=== PATIENT | male | born 1985 | race African-American/Black ===

== ENCOUNTER 2016-09-07 07:10 | Day surgery (SDC) | payer OTHER ==
[~2016-09-07] VITALS: Ht 167.6 cm; Wt 95.6 kg
[2016-09-07] VITALS (18 sets, daily range): BP systolic 130–180; BP diastolic 78–100; PULSE 91–116; RESP 12–18; TEMP 97.3–98.9; O2SAT 96–100; Ht 167.6 cm; Wt 95.6 kg
[~2016-09-07 07:10] MED LIST: ALBU8.5H INH; CHOL100055 PO; HYOS0.3739 PO; LIDOCAINE 1% (10mg/ml) 2ml SDV INJ ONE; LISI10TA7 PO; LORA10TA7 PO; LR 1,000 ML IV SCH; MULT-447 PO; PANT40TA27 PO; TEST200V21 IM; VENL75TA4 PO
--- OUTSIDE RECORDS SUMMARY | 2016-09-07 07:14 | XMS REPORT | Referral Summary ---
Author Author [facility] Organization [facility] Address Unknown Phone Unavailable Care Team Providers Care [employer] Consultant Name Role Phone Jh Vega Primary Care Physician [phone] [facility] [id number] Date(s): 07/24/15 - 07/24/15 [facility] [address] [place] [address] [place] Discharge Diagnosis: Diarrhea Discharge Diagnosis: Abdominal pain Discharge Diagnosis: IBS (irritable bowel syndrome) Discharge Disposition: -Home or Self Care Attending Physician: Rylee Whalen Admitting Physician: Rylee Whalen Referring Physician: Osbaldo Vega MD Vital Signs Most recent to 1 oldest [Reference Range]: Peripheral Pulse 76 bpm Rate [60-100 bpm] (07/24/15 4:18 PM) Blood Pressure 120/88 mmHg [90-140/60-90 mmHg] (07/24/15 4:18 PM) Problem List Condition Effective Dates Status Health Status Informant Acid Resolved reflux(Confirmed) Allergic rhinitis Active (disorder)(Confirmed ) Allergic Resolved rhinitis(Confirmed) Asthma(Confirmed) Resolved Hyperlipidemia(Confi Active rmed) IBS [Irritable bowel Resolved syndrome](Confirmed) Obesity(Confirmed) Active patient Sinusitis(Confirmed) Resolved Allergies, Adverse Reactions, Alerts Substance Reaction Severity Status aspirin GI upset Active Stomach Pain caffeine Stomach Pain Active Latex unknown Active sulfa drugs Active Medications 3ML LL SYRNG 21GX1" MIS See Instructions, USE TO INJECT TESTOSTERONE DIRECTED EVERY WEEK, # 10 unknown unit, 2 Refill(s), eRx: [facility], USE TO INJECT TESTOSTERONE DIRECTED EVERY WEEK Start Date: 02/21/14 Status: Ordered BD 3 ML SYRINGE WITH NEEDLE See Instructions, USE TO INJECT TESTOSTERONE ONCE WEEKLY, # 10 syringes, 4 Refill(s), eRx: [facility]/pharmacy #[id number], USE TO INJECT TESTOSTERONE ONCE WEEKLY Start Date: 12/26/14 Status: Ordered BD 3 ML SYRINGE WITH NEEDLE See Instructions, USE TO INJECT TESTOSTERONE ONCE WEEKLY, # 10 syringes, eRx: [facility]/pharmacy #[id number], USE TO INJECT TESTOSTERONE ONCE WEEKLY Start Date: 08/27/14 Status: Ordered clindamycin See Instructions, 0 Refill(s) Start Date: 11/06/13 Status: Ordered Depo-Testosterone 200 mg/mL intramuscular solution 50 mg, IntraMuscular, qWeek, 0.25 ML IM weekly, # 10 mL, 3 Refill(s) Start Date: 12/03/14 Status: Ordered hyoscyamine 0.375 mg oral tablet, extended release See Instructions, TAKE 1 TABLET BY MOUTH EVERY 12 HOURS, # 60 tabs, 6 Refill(s) , eRx: [facility]/pharmacy #[id number], TAKE 1 TABLET BY MOUTH EVERY 12 HOURS Start Date: 02/20/15 Status: Ordered Insulin Syringe (DME) DME Item 21 gauge IM weekly, See Instructions, # 1 Each, 0 Refill(s), Supply Start Date: 11/03/13 Status: Ordered lisinopril 10 mg oral tablet 1 tabs, Oral, Daily, # 30 tabs, 0 Refill(s) Start Date: 11/03/13 Status: Ordered loratadine 10 mg oral tablet 1 tabs, Oral, Daily, 0 Refill(s) Start Date: 11/03/13 Status: Ordered Misc Medication 0.5 mg, Oral, Bio identical hormone (Estrogen, Testosterone) 0.5 mg prn, 0 Refill(s) Start Date: 11/07/14 Status: Ordered pantoprazole 40 mg oral delayed release tablet See Instructions, TAKE 1 TABLET BY MOUTH ONCE DAILY, # 30 tabs, 3 Refill(s), eRx : [facility]/pharmacy #[id number], TAKE 1 TABLET BY MOUTH ONCE DAILY Start Date: 07/16/15 Status: Ordered Ventolin HFA puffs, Inhalation, QID, 0 Refill(s) Start Date: 11/03/13 Status: Ordered Xifaxan 550 mg oral tablet 550 mg 1 tabs, Oral, TID, # 42 tabs, 0 Refill(s), Pharmacy: [facility]/pharmacy #[id number] , 1 tabs Oral TID Start Date: 07/10/15 Status: Ordered Zofran 4 mg, 0 Refill(s) Start Date: 11/03/13 Status: Ordered Results No data available for this section Immunizations Vaccine Date Refusal Reason hepatitis B adult vaccine 07/22/99 influenza virus vaccine, live 02/10/08 measles/mumps/rubella virus vaccine 02/02/06 tetanus toxoid 04/26/05 tetanus-diphth toxoids (Td) adult/adol 09/11/94 Procedures No data available for this section Social History Social History Type Response Smoking Status Never smoker Assessment and Plan No data available for this section
--- OUTSIDE RECORDS SUMMARY | 2016-09-07 07:14 | XMS REPORT | Continuity of Care Document ---
Author Author [facility] Organization [facility] Address Unknown Phone Unavailable Allergies Active Description Code Type Severity Reaction Onset Reported/Identified Relationship to Patient Clinical Status Yes ASPIRIN 1191 Drug Allergy N/A N/A Yes LATEX EXAM GLOVES [id number] Drug Allergy N/A N/A Yes SULFA Drug Allergy N/A N/A Yes aspirin NKMA N/A Stomach Pain GI upset Yes aspirin NKMA N/A GI upset Stomach Pain 08/22/2013 Yes caffeine NKMA N/A Stomach Pain 08/22/2013 Yes Latex NKMA N/A unknown 08/22/2013 Yes sulfa drugs NKMA N/A N/A 07/10/2015 Medications Problems Procedures Results Encounters ACCT No. Visit Date/Time Discharge Status Pt. Type Provider Facility Loc./Unit Complaint [id number] 06/26/2013 13:18:00 06/26/2013 23 :59:59 C[facility] Outpatient [id number] 06/13/2013 14:49:00 06/13/2013 23 :59:59 CLS Outpatient
--- OUTSIDE RECORDS SUMMARY | 2016-09-07 07:14 | XMS REPORT | Referral Summary ---
Author Organization Unknown Address Unknown Phone Unavailable Care Team Providers Care [employer] Sales Representative Name Role Phone Jh Knight Primary Care Physician [phone] Encounter [facility] Date(s): 06/01/14 - 06/01/14 [facility] [address] [place], [place] [address] Discharge Diagnosis: IBS (irritable bowel syndrome) Discharge Disposition: Home or Self Care Attending Physician: Jani Sanchez III, MD Admitting Physician: Jani Sanchez III, MD Referring Physician: Jame Knight MD Vital Signs Most recent to 1 oldest [Reference Range]: Peripheral Pulse 104 bpm Rate [60-100 bpm] *HI* (06/01/14 3:20 PM) Blood Pressure 102/70 mmHg [90-140/60-90 mmHg] (06/01/14 3:20 PM) Problem List Condition Effective Dates Status Health Status Informant Acid Resolved reflux(Confirmed) Allergic Resolved rhinitis(Confirmed) Allergic rhinitis Active (disorder)(Confirmed ) Asthma(Confirmed) Resolved IBS [Irritable bowel Resolved syndrome](Confirmed) Obesity(Confirmed) Active patient Sinusitis(Confirmed) Resolved Allergies, Adverse Reactions, Alerts Substance Reaction Severity Status aspirin GI upset Active Stomach Pain caffeine Stomach Pain Active Latex unknown Active Medications 3ML LL SYRNG 21GX1" MIS See Instructions, USE TO INJECT TESTOSTERONE DIRECTED EVERY WEEK, # 10 unknown unit, 2 Refill(s), eRx: [facility], USE TO INJECT TESTOSTERONE DIRECTED EVERY WEEK Special Instructions: USE TO INJECT TESTOSTERONE DIRECTED EVERY WEEK Start Date: 02/21/14 Status: Ordered clindamycin See Instructions, 0 Refill(s) Start Date: 11/06/13 Status: Ordered Depo-Testosterone 50 mg, IntraMuscular, qWeek, 0 Refill(s) Start Date: 11/03/13 Status: Ordered Effexor 2 caps, Oral, Daily, 0 Refill(s) Start Date: 11/06/13 Status: Ordered Insulin Syringe (DME) DME Item 21 gauge IM weekly, See Instructions, # 1 Each, 0 Refill(s), Supply Special Instructions: 21 gauge IM weekly Start Date: 11/03/13 Status: Ordered lisinopril 10 mg oral tablet 1 tabs, Oral, Daily, # 30 tabs, 0 Refill(s) Start Date: 11/03/13 Status: Ordered loratadine 10 mg oral tablet 1 tabs, Oral, Daily, 0 Refill(s) Start Date: 11/03/13 Status: Ordered PriLOSEC OTC 20 mg oral delayed release tablet See Instructions, 1 tabs Oral BID, # 60 Each, 2 Refill(s), other reason (Rx) Special Instructions: 1 tabs Oral BID Start Date: 06/01/14 Status: Ordered Ventolin HFA puffs, Inhalation, QID, 0 Refill(s) Start Date: 11/03/13 Status: Ordered Zofran 4 mg, 0 Refill(s) Start Date: 11/03/13 Status: Ordered Results No data available for this section Immunizations Vaccine Date Refusal Reason influenza virus vaccine, live 02/10/08 measles/mumps/rubella virus vaccine 02/02/06 tetanus toxoid 04/26/05 Procedures No data available for this section Social History Social History Type Response Smoking Status Never smoker Assessment and Plan Referrals to Other Providers Referred by: Jani Sanchez III, MD
--- OUTSIDE RECORDS SUMMARY | 2016-09-07 07:14 | XMS REPORT | Referral Summary ---
Author Author [facility] Organization [facility] Address Unknown Phone Unavailable Care Team Providers Care Materials Tech Name Role Phone Jh Knight Primary Care Physician [phone] Encounter Date(s): 11/07/14 - 11/07/14 [facility] [address] [place] [address] [facility] Discharge Diagnosis: Abnormal thyroid exam Discharge Diagnosis: Gender identity disorder Discharge Disposition: 01-Home or Self Care Attending Physician: Isidro Case MD Admitting Physician: Isidro Case MD Referring Physician: Jame Knight MD Vital Signs Most recent to 1 oldest [Reference Range]: Peripheral Pulse 68 bpm Rate [60-100 bpm] (11/07/14 11:09 AM) Blood Pressure 125/92 mmHg [90-140/60-90 mmHg] (11/07/14 11:09 AM) Problem List Condition Effective Dates Status Health [...] # 10 unknown unit, 2 Refill(s), eRx: [facility], USE TO INJECT TESTOSTERONE DIRECTED EVERY WEEK Start Date: 02/21/14 Status: Ordered BD 3 ML SYRINGE WITH NEEDLE See Instructions, USE TO INJECT TESTOSTERONE ONCE WEEKLY, # 10 syringes, 4 Refill(s), eRx: [facility]/pharmacy #[id number], USE TO INJECT TESTOSTERONE ONCE WEEKLY Start Date: 12/26/14 Status: Ordered BD 3 ML SYRINGE WITH NEEDLE See Instructions, USE TO INJECT TESTOSTERONE ONCE WEEKLY, # 10 syringes, eRx: [facility]/pharmacy #[id number], USE TO INJECT TESTOSTERONE ONCE WEEKLY Start Date: 08/27/14 Status: Ordered clindamycin See Instructions, 0 Refill(s) Start Date: 11/06/13 Status: Ordered Depo-Testosterone 200 mg/mL intramuscular solution 50 mg, IntraMuscular, qWeek, 0.25 ML IM weekly, # 10 mL, 3 Refill(s) Start Date: 12/03/14 Status: Ordered Effexor 2 caps, Oral, Daily, 0 Refill(s) Start Date: 11/06/13 Status: Ordered hyoscyamine 0.375 mg oral tablet, extended release See Instructions, TAKE 1 TABLET BY MOUTH EVERY 12 HOURS, # 60 tabs, 6 Refill(s) , eRx: [facility]/pharmacy #[id number], TAKE 1 TABLET BY MOUTH EVERY 12 [...] BY MOUTH ONCE DAILY, # 30 tabs, 11 Refill(s), eRx: [facility]/pharmacy #[id number], TAKE 1 TABLET BY MOUTH ONCE DAILY Start Date: 09/24/14 Status: Ordered Ventolin HFA puffs, Inhalation, QID, [...] Smoking Status Never smoker Assessment and Plan Extracted from: Title: Office Visit Note Author: Isidro Caes MD Date: 11/07/14 Assessment/Plan 1.Gender identity disorder Continue same testosterone dose. We will check level on Wednesday and adjust dose if needed. Also check estradiol level with DHEA sulfate and CMP. Patient has fullness in his thyroid examination. We'll get thyroid ultrasound. Follow-up in one year. Ordered: Comprehensive Metabolic Panel Estradiol Level Testosterone Level Total 2.Abnormal thyroid exam Ordered: US Thyroid Extracted from: Title: Ambulatory Patient Education Author: Isidro Case MD Date: Family Medicine Gender Dysphoria Most people see themselves as male or female (gender identity ) based on their physical sexual appearance (biological sex ). Biological sex is assigned at based on visible sex organs. People are assigned a male or female gender according to their biological sex. They are raised to dress and behave in ways that are typical of these assigned roles (gender roles ). Sometimes a person feels there is a conflict, or mismatch, between his or her gender identity and biological sex. The conflict or mismatch can cause negative emotional reactions. It can interfere with one or more areas of the person's life. This condition is referred to as gender dysphoria. Gender dysphoria can start in adolescence or adulthood. It usually starts in childhood. However, most children who show symptoms of gender dysphoria do not continue to have the condition past childhood. In these children, cross-gender behavior is considered a passing phase or normal part of growing up. Gender dysphoria that lasts into adolescence or adulthood is a relatively rare condition. The treatment options are complex. SYMPTOMS Children Symptoms of gender dysphoria in children may include the following: Strong desire to be treated as a person of the opposite biological sex or insistence that he or she is the opposite biological sex. Refusal to wear clothes that are typically worn by people of his or her own biological sex. Desire to wear clothing typical of the clothes worn by people of the opposite biological sex. Dislike or refusal to take part in games or activities that are typical for people of his or her own biological sex. Desire to take part in games or activities that are typical for people of the opposite biological sex. Strong desire to play roles typically meant for people of the opposite biological sex in make-believe play or fantasy play. Strong desire for playmates of the opposite biological sex. Strong dislike of one's own sexual anatomy and desire for the typical sex characteristics of people of the opposite biological sex. Dislike or refusal to urinate in positions that are typical for people of their biological sex. A male may want to sit down or a girl may want to stand up. Adolescents and Adults Adolescents and adults with gender dysphoria often change their appearance or behavior or both to look and feel more like people of the opposite biological sex. Symptoms of gender dysphoria in adolescents and adults may include: A feeling of certainty about a mismatch between gender identity and biological sex. This is often expressed as "feeling like the wrong gender" or "being trapped in the wrong body." A strong desire to be rid of biological sex characteristics. A strong desire for the sex characteristics of people of the opposite biological sex. A strong desire to be treated as a person of the opposite biological sex. A strong feeling of having feelings and reactions that are typical of people of the opposite biological sex. DIAGNOSIS The diagnosis of gender dysphoria in children and adolescents usually includes evaluations by a pediatric staging technician and pediatric mental health specialist. Adults with gender dysphoria usually are referred to a mental health professional or specialized gender identity clinic for further evaluation and treatment. Criteria for the diagnosis of gender dysphoria must include a strong conflict or mismatch between gender identity and biological sex for 6 months or longer. It must also include one or both of the following: Significant emotional distress, usually in the form of depression or anxiety but sometimes as serious as suicidal thoughts. Negative impacts on the person's personal life or school or work performance. For example, children with gender dysphoria may refuse to attend school because they are teased by classmates. They also may be pressured to dress in clothing typical of their assigned gender. Children Specific diagnostic criteria for children also include at least six of the symptoms listed for children (see Symptoms). One of these six symptoms must be the strong desire to be treated as a person of the opposite biological sex or insistence that he or she is the opposite biological sex. Adolescents and Adults Specific diagnostic criteria for adolescents and adults include at least two of the symptoms listed for adolescents and adults (see Symptoms). TREATMENT The goal of treatment for people with gender dysphoria is to provide the tools to help them live as comfortably as possible in their preferred gender. Therapy may include: Counseling: Children and adolescentsIndividual and family counseling is recommended. The goal of child and adolescent counseling is to create a supportive environment at home and in school. AdultsIndividual and, if appropriate, couples counseling is recommended. One goal of adult counseling is to provide emotional support. Another goal is to give advice about living in the preferred gender. Another goal is to offer education on additional treatment options that can help them live the way they want to live. Hormone therapy: AdolescentsUnder the care of a medical customer service representative, some adolescents with gender dysphoria may choose to take a synthetic hormone. This delays the sexual development that happens at puberty. AdultsSome adults with gender dysphoria choose to take special hormones. These hormones help them appear and feel more like their desired gender. Gender reassignment surgery (permanent removal of unwanted sex organs and creation of desired sex organs): In children and adolescents, gender reassignment surgery may be an option to more clearly define the sexual organs of those with rare genetic disorders. These disorders interfere with the normal physical development of sexual organs. In adults, gender reassignment surgery mainly is an option for those who have been living in their preferred gender for at least a year. They must also be convinced that it is the right choice for them. Document Released: 03/29/2013 Document Reviewed: 03/29/2013 [facility] Patient Information [facility]. No follow up information was provided.
--- OUTSIDE RECORDS SUMMARY | 2016-09-07 07:14 | XMS REPORT | Referral Summary ---
Author Author [facility] Organization [facility] Address Unknown Phone Unavailable Care Team Providers Care Data Base Administrator Name Role Phone Jh Vega Primary Care Physician [phone] Encounter [facility] Date(s): 07/10/15 - 07/10/15 [facility] [address] [place] [address] [place] Discharge Diagnosis: IBS (irritable bowel syndrome) Discharge Diagnosis: GERD (gastroesophageal reflux disease) Discharge Diagnosis: Diarrhea Discharge Diagnosis: Obesity Discharge Disposition: 01-Home or Self Care Attending Physician: Rylee Whalen Admitting Physician: Rylee Whalen Referring Physician: Jame Knight MD Vital Signs Most recent to 1 oldest [Reference Range]: Peripheral Pulse 100 bpm Rate [60-100 bpm] (07/10/15 1:03 PM) Blood Pressure 118/80 mmHg [90-140/60-90 mmHg] (07/10/15 1:03 PM) Problem List Condition Effective Dates Status [...] # 10 unknown unit, 2 Refill(s), eRx: [facility], USE TO INJECT TESTOSTERONE DIRECTED EVERY WEEK Start Date: 02/21/14 Status: Ordered BD 3 ML SYRINGE WITH NEEDLE See Instructions, USE TO INJECT TESTOSTERONE ONCE WEEKLY, # 10 syringes, 4 Refill(s), eRx: [facility]/pharmacy #[id number], USE TO INJECT TESTOSTERONE ONCE WEEKLY Start Date: 12/26/14 Status: Ordered BD 3 ML SYRINGE WITH NEEDLE See Instructions, USE TO INJECT TESTOSTERONE ONCE WEEKLY, # 10 syringes, eRx: [facility]/pharmacy #[id number], USE TO INJECT TESTOSTERONE ONCE WEEKLY Start [...] # 60 tabs, 6 Refill(s) , eRx: [facility]/pharmacy #[id number], TAKE 1 TABLET BY MOUTH EVERY 12 [...] DAILY, # 30 tabs, 11 Refill(s), eRx: [facility]/pharmacy #[id number], TAKE 1 TABLET BY MOUTH ONCE DAILY Start Date: 09/24/14 Status: Ordered Ventolin HFA puffs, Inhalation, QID, 0 Refill(s) Start Date: 11/03/13 Status: Ordered Xifaxan 550 mg oral tablet 550 mg 1 tabs, Oral, TID, # 42 tabs, 0 Refill(s), Pharmacy: [facility]/pharmacy #[id number] , 1 tabs Oral TID Start Date: [...] Extracted from: Title: Office Visit Note Author: Rylee Whalen Date: 07/10/15 Assessment/Plan 1.Diarrhea 2.IBS (irritable bowel syndrome) 3.GERD (gastroesophageal reflux disease) Obesity Orders: rifaximin, 550 mg 1 tabs, Oral, TID, # 42 tabs, 0 Refill(s), Pharmacy : [facility]/pharmacy #[id number], 1 tabs Oral TID Addendum This is a very pleasant 29-year-old -Spanish male with a known history of by Marlee, irritable bowel syndrome diarrhea. We've checked his stool culture and is negative for Rylee Martinez any infection including C. difficile. He continues to have diarrhea and abdominal PA on pain. He also has G6PD deficiency. We recommended Xifaxan 550 mg 3 times a day for 2 July 09. Return to clinic in 2 weeks. Everything was discussed with Dr Gonzalez and he 2016 agrees with the following plan. 19:57:31 CDT Addendum This is best to be signed by Dr. Gonzalez by Rylee Whalen on July 10, 2015 19:58:09 CDT
--- OUTSIDE RECORDS SUMMARY | 2016-09-07 07:14 | XMS REPORT | Referral Summary ---
Author Author [facility] Organization [facility] Address Unknown Phone Unavailable Care Team Providers [facility] Pricing Consultant Name Role Phone GaryJh Primary Care Physician [phone] Encounter VC Date(s): 09/10/15 - 09/10/15 [facility] [address] [place] [address] [facility] Discharge Diagnosis: Thyroid nodule Discharge Diagnosis: Gender identity disorder Discharge Disposition: 01-Home or Self Care Attending Physician: Isidro Case MD Admitting Physician: Isidro Case MD Vital Signs Most recent to 1 oldest [Reference Range]: Peripheral Pulse 104 bpm Rate [60-100 bpm] *HI* (09/10/15 3:12 PM) Blood Pressure 128/78 mmHg [90-140/60-90 mmHg] (09/10/15 3:12 PM) Problem List Condition Effective Dates Status [...] # 10 unknown unit, 2 Refill(s), eRx: [id number], USE TO INJECT TESTOSTERONE DIRECTED EVERY WEEK Start Date: 02/21/14 Status: Ordered BD 3 ML SYRINGE WITH NEEDLE See Instructions, USE TO INJECT TESTOSTERONE ONCE WEEKLY, # 10 syringes, 4 Refill(s), eRx: [facility]/pharmacy #[id number], USE TO INJECT TESTOSTERONE ONCE WEEKLY Start Date: 12/26/14 Status: Ordered BD 3 ML SYRINGE WITH NEEDLE See Instructions, USE TO INJECT TESTOSTERONE ONCE WEEKLY, # 10 syringes, eRx: [facility]/pharmacy #[id number], USE TO INJECT TESTOSTERONE ONCE WEEKLY Start [...] # 60 tabs, 6 Refill(s) , eRx: [facility]/pharmacy #[id number], TAKE 1 TABLET BY MOUTH EVERY 12 [...] # 30 tabs, 3 Refill(s), eRx : [facility]/pharmacy #[id number], TAKE 1 TABLET BY MOUTH ONCE DAILY Start Date: 07/16/15 Status: Ordered venlafaxine 75 mg oral tablet 75 mg 1 tabs, Oral, Daily, # 30 tabs, 0 Refill(s), other reason (Rx) Start Date: 09/10/15 Stop Date: 10/10/15 Status: Ordered Ventolin HFA puffs, Inhalation, QID, [...] smoker Assessment and Plan Extracted from: Title: Ambulatory Patient Education Author: Isidro Case MD Date: Family Medicine Goiter Goiter is an enlarged thyroid gland. The thyroid gland sits at the base of the front of the neck. The gland produces hormones that regulate mood, body temperature, pulse rate, and digestion. Most goiters are painless and are not a cause for serious concern. Goiters and conditions that cause goiters can be treated if necessary. CAUSES Common causes of goiter include: Graves disease (causes too much hormone to be produced [hyperthyroidism]) . Aman disease (causes too little hormone to be produced [ hypothyroidism]). Thyroiditis (inflammation of the thyroid sometimes caused by virus or ). Nodular goiter (small bumps form; sometimes called toxic nodular goiter). . Thyroid cancer (very few goiters with nodules are cancerous). Certain medications. Radiation exposure. Iodine deficiency (more common in developing countries in inland populations). RISK FACTORS Risk factors for goiter include: A family history of goiter. Female gender. Inadequate iodine in the diet. Age older than 40 years. SYMPTOMS Many goiters do not cause symptoms. When symptoms do occur, they may include: Swelling in the lower part of the neck. This swelling can range from a very small bump to a large lump. A tight feeling in the throat. A hoarse voice. Less commonly, a goiter may result in: Coughing. Wheezing. Difficulty swallowing. Difficulty breathing. Bulging neck veins. Dizziness. When a goiter is the result of hyperthyroidism, symptoms may include: Rapid or irregular heartbeat. Sickness in your stomach (nausea). Vomiting. Diarrhea. Shaking. Irritable feeling. Bulging eyes. Weight loss. Heat sensitivity. Anxiety. When a goiter is the result of hypothyroidism, symptoms may include: Tiredness. Dry skin. Constipation. Weight gain. Irregular menstrual cycle. Depressed mood. Sensitivity to cold. DIAGNOSIS Tests used to diagnose goiter include: A physical exam. Blood tests, including thyroid hormone levels and antibody testing. Ultrasonography, computerized X-ray scan (computed tomography, CT) or computerized magnetic scan (magnetic resonance imaging, MRI). Thyroid scan (imaging along with safe radioactive injection). Tissue sample taken (biopsy) of nodules. This is sometimes done to confirm that the nodules are not cancerous. TREATMENT Treatment will depend on the cause of the goiter. Treatment may include: Monitoring. In some cases, no treatment is necessary, and your doctor will monitor your condition at regular checkups. Medications and supplements. Thyroid medication (thyroid hormone replacement) is available for hyperthyroidism and hypothyroidism. If inflammation is the cause, [id number] medication or steroid medication may be recommended. Goiters caused by iodine deficiency can be treated with iodine supplements or changes in diet. Radioactive iodine treatment. Radioactive iodine is injected into the blood. It travels to the thyroid gland, kills thyroid cells, and reduces the size of the gland. This is only used when the thyroid gland is overactive. Lifelong thyroid hormone medication is often necessary after this treatment. Surgery. A procedure to remove all or part of the gland may be recommended in severe cases or when cancer is the cause. Hormones can be taken to replace the hormones normally produced by the thyroid. HOME CARE INSTRUCTIONS Take medications as directed. Follow your caregiver's recommendations for any dietary changes. Follow up with your caregiver for further examination and testing, as directed. PREVENTION If you have a family history of goiter, discuss screening with your doctor. Make sure you are getting enough iodine in your diet. Use of iodized table salt can help prevent iodine deficiency. This information is not intended to replace advice given to you by your health care provider. Make sure you discuss any questions you have with your health care provider. Document Released: 09/30/2010 Document Revised: 08/27/2014 Document Reviewed: ExitCare Patient Information 2015 [employer] [facility]. No follow up information was provided. Extracted from: Title: Office Visit Note Author: Isidro Case MD Date: 09/10/15 Assessment/Plan 1.Gender identity disorder Continue same testosterone dose. Check testosterone, estradiollevel, CMP and CBC. 2.Thyroid nodule Repeat thyroid ultrasound in October. Follow-up in one year. Orders: venlafaxine, 75 mg 1 tabs, Oral, Daily, # 30 tabs, 0 Refill(s), other reason (Rx)
--- OUTSIDE RECORDS SUMMARY | 2016-09-07 07:14 | XMS REPORT | Continuity of Care Document ---
Author Author Daniel TRISTAN MD, [facility] Address [address] [place] [address] Phone Care Team Providers Care Body Cleaner Name Role Phone Jame Knight PP Unavailable Payers Payer name Insurance type Covered green party ID Authorization(s) Unknown Problems Condition Effective Dates (start - stop) Clinical Status Flatulence, eructation, and gas pain - *Symptomatic GERD - *Worse Irritable Colon - *Symptomatic Allergic rhinitis, cause unspecified - *Chronic Irritable Colon - Uncertain GERD - *Stable Flatulence, eructation, and gas pain - *Chronic Gender identity disorder - *Chronic Family History Family Member Diagnosis Age At Onset Status Father (Alive) Allergies Yes Paternal grandmother (Alive) Diabetes Yes Maternal grandmother (Alive) Heart disease Yes Mother (Alive) Hypertension Yes Maternal grandfather () Cancer, prostate Yes Maternal grandmother (Alive) Diabetes Yes Mother (Alive) Allergies Yes Social History Social History Element Description Quantity Unknown Allergies, Adverse Reactions, Alerts Substance Reaction Severity Status LATEX Hives Unknown CAFFEINE Stomach Pain Unknown ASPIRIN Stomach Pain Unknown Medications Medication Instructions Dosage Effective Dates (start - stop) Status Cymbalta 60 mg capsule,delayed release take 1 capsule (60MG) by oral route every bedtime 60 MG - Active loratadine 10 mg tablet take 1 tablet (10MG) by oral route every day 10 MG - Active lisinopril 10 mg tablet take 1 tablet (10MG) by oral route every day 10 MG - Active Lamictal 200 mg tablet take 1 tablet (200MG) by oral route 2 times every day 200 MG - Active hyoscyamine sulfate 0.125 mg tablet take 1 tablet (0.125MG) by oral route every 4 hours as needed for abdominal pain and IBS - Active MoviPrep 100 g-7.5 g-2.691 g-4.7 g oral powder packet take by Oral route as directed per written instructions 0 - No Longer Active Prilosec 20 mg capsule,delayed release Take one tablet by mouth daily - Active Ventolin HFA 90 mcg/actuation aerosol inhaler inhale 2 puff by inhalation route every 4 - 6 hours as needed 0 - Active Zofran 4 mg tablet take 1 Tablet (4MG) by oral route every 8 hours 4 MG - Active Depo-Provera 400 mg/mL intramuscular solution inject 1 milliliter by intramuscular route every 3 months Dose unknown -new RX to patient 400 MG Jun - Active Depo-Testosterone 200 mg/mL intramuscular oil inject 0.25 milliliter (50MG) by INTRAMUSCULAR route every week 50 MG - Active syringe with needle (disp) 1 mL 21 x 1" inject 1 im every week 2013 - Active Immunizations Vaccine Date Status Comments flu (split) (3 yrs or older) completed - Completed reason: Previously given Tetanus Toxoid completed - Completed reason: Previously Given MMR completed - Completed reason: Previously Given Results Test Name Date and Time Measure Units Reference Range Abnormal Flag Comments Unknown Vital Signs Date / Time: Height Weight Pulse Rate Blood Pressure Temperature /14:51:00 66.00 in 232.00 lbs 88 /min 126/78 mm[Hg] Procedures Procedure Date Unknown Encounters Encounter Location Date Patient Visit [facility] Patient Visit [facility] Mur Day Surg Patient Visit [facility] Patient Visit [facility] Patient Visit [facility] Advance Directives Directive Effective Date Unknown
--- OUTSIDE RECORDS SUMMARY | 2016-09-07 07:14 | XMS REPORT | Referral Summary ---
Author Organization Unknown Address Unknown Phone Unavailable Care Team Providers Care Telephone Operators Supervisor Name Role Phone Jh Knight Primary Care Physician [phone] Encounter Date(s): 06/29/14 - 06/29/14 [facility] [address] [place], [place] [address] Discharge Diagnosis: IBS (irritable bowel syndrome) Discharge Disposition: Home or Self Care Attending Physician: Jani Sanchez III, MD Admitting Physician: Jani Sanchez III, MD Vital Signs Most recent to 1 oldest [Reference Range]: Peripheral Pulse 112 bpm Rate [60-100 bpm] *HI* (06/29/14 1:22 PM) Blood Pressure 117/73 mmHg [90-140/60-90 mmHg] (06/29/14 1:22 PM) Problem List Condition Effective Dates Status [...] # 10 unknown unit, 2 Refill(s), eRx: [id number], USE TO INJECT TESTOSTERONE DIRECTED EVERY WEEK Special Instructions: USE TO INJECT TESTOSTERONE DIRECTED EVERY WEEK Start Date: 02/21/14 Status: Ordered clindamycin See Instructions, 0 Refill(s) Start Date: 11/06/13 Status: Ordered Depo-Testosterone 200 mg/mL intramuscular solution 50 mg, IntraMuscular, qWeek, 0.25 ML IM weekly, # 10 mL, 3 Refill(s) Special Instructions: 0.25 ML IM weekly Start Date: 06/04/14 Status: Ordered Effexor 2 caps, Oral, Daily, 0 Refill(s) Start Date: 11/06/13 Status: Ordered Insulin Syringe (DME) DME Item 21 gauge IM weekly, See Instructions, # 1 Each, 0 Refill(s), Supply Special Instructions: 21 gauge IM weekly Start Date: 11/03/13 Status: Ordered Librax 5 mg-2.5 mg oral capsule 1 caps, Oral, QIDACHS, # 120 caps, 0 Refill(s) Start Date: 06/29/14 Stop Date: 07/30/14 Status: Ordered lisinopril 10 mg oral tablet 1 tabs, Oral, Daily, # 30 tabs, 0 Refill(s) Start Date: 11/03/13 Status: Ordered loratadine 10 mg oral tablet 1 tabs, Oral, Daily, 0 Refill(s) Start Date: 11/03/13 Status: Ordered pantoprazole 40 mg oral delayed release tablet 1 tabs, Oral, Daily, # 30 tabs, 2 Refill(s), Pharmacy: [id number], 1 tabs Oral Daily Start Date: 06/29/14 Status: Ordered Ventolin HFA puffs, Inhalation, QID, [...]
--- OUTSIDE RECORDS SUMMARY | 2016-09-07 07:14 | XMS REPORT | Referral Summary ---
Author Author [facility] Organization [facility] Address Unknown Phone Unavailable Care Team Providers Care Business Unit Leader Name Role Phone MelissasantiJh Primary Care Physician [phone] Encounter [facility] [id number] Date(s): 06/28/15 - 06/28/15 [facility] [address] [place] [address] [place] Discharge Diagnosis: IBS (irritable bowel syndrome) Discharge Diagnosis: GERD (gastroesophageal reflux disease) Discharge Diagnosis: Diarrhea Discharge Disposition: 01-Home or Self Care Attending Physician: Rylee Whalen Admitting Physician: Jani Sanchez III, MD Vital Signs Most recent to 1 oldest [Reference Range]: Peripheral Pulse 94 bpm Rate [60-100 bpm] (06/28/15 7:54 AM) Blood Pressure 122/90 mmHg [90-140/60-90 mmHg] (06/28/15 7:54 AM) Problem List Condition Effective Dates Status [...] # 10 unknown unit, 2 Refill(s), eRx: [id number], USE TO INJECT TESTOSTERONE DIRECTED EVERY WEEK Start Date: 02/21/14 Status: Ordered BD 3 ML SYRINGE WITH NEEDLE See Instructions, USE TO INJECT TESTOSTERONE ONCE WEEKLY, # 10 syringes, 4 Refill(s), eRx: [facility] #[id number], USE TO INJECT TESTOSTERONE ONCE WEEKLY Start Date: 12/26/14 Status: Ordered BD 3 ML SYRINGE WITH NEEDLE See Instructions, USE TO INJECT TESTOSTERONE ONCE WEEKLY, # 10 syringes, eRx: [facility]/pharmacy #[id number], USE TO INJECT TESTOSTERONE ONCE WEEKLY Start [...] # 60 tabs, 6 Refill(s) , eRx: [facility]/pharmacy #[id number], TAKE 1 TABLET BY MOUTH EVERY 12 [...] DAILY, # 30 tabs, 11 Refill(s), eRx: [facility]/pharmacy #[id number], TAKE 1 TABLET BY MOUTH ONCE DAILY [...]
--- OUTSIDE RECORDS SUMMARY | 2016-09-07 07:14 | XMS REPORT | Continuity of Care Document ---
Author Author Daniel TRISTAN MD, [facility] Address [address] [place] [address] Phone Care Team Providers Care Asbestos Removal Supervisor Name Role Phone Jame Knight PP Unavailable Payers Payer name Insurance type Covered alliance party ID Authorization(s) Unknown Problems Condition Effective Dates (start - stop) Clinical Status Irritable Colon - Uncertain GERD - *Stable Flatulence, eructation, and gas pain - *Chronic Allergic rhinitis, cause unspecified - *Chronic Flatulence, eructation, and gas pain - *Symptomatic GERD - *Worse Irritable Colon - *Symptomatic Gender identity disorder - *Chronic Gluten-sensitive enteropathy - *Fair Control Irritable Colon - Improved Unspecified vitamin d deficiency - *Stable Family History Family Member Diagnosis Age At Onset Status Father (Alive) Allergies Yes Paternal grandmother (Alive) Diabetes Yes Maternal grandmother (Alive) Heart disease Yes Mother (Alive) Hypertension Yes Maternal grandfather () Cancer, prostate Yes Maternal grandmother (Alive) Diabetes Yes Mother (Alive) Allergies Yes Social History Social History Element Description Quantity Unknown Allergies, Adverse Reactions, Alerts Substance Reaction Severity Status CAFFEINE Stomach Pain Unknown ASPIRIN Stomach Pain Unknown LATEX Hives Unknown Medications Medication Instructions Dosage Effective Dates (start - stop) Status Ventolin HFA 90 mcg/actuation aerosol inhaler inhale 2 puff by inhalation route every 4 - 6 hours as needed 0 - Active DEPO-PROVERA (unknown strength) inject 1 milliliter by intramuscular route every 2 months Dose unknown -new RX to patient - No Longer Active Prilosec 20 mg capsule,delayed release Take one tablet by mouth daily - Active lisinopril 10 mg tablet take 1 tablet (10MG) by oral route every day 10 MG - Active Cymbalta 60 mg capsule,delayed release take 1 capsule (60MG) by oral route every bedtime 60 MG - Active loratadine 10 mg tablet take 1 tablet (10MG) by oral route every day 10 MG - Active Zofran 4 mg tablet take [...] 1 im every week 2013 - Active hyoscyamine sulfate 0.125 mg tablet take 1 tablet (0.125MG) by oral route every 4 hours as needed for abdominal pain and IBS - Active Immunizations Vaccine Date Status Comments flu (split) (3 yrs or older) completed - Completed reason: Previously given Tetanus Toxoid completed - Completed reason: Previously Given MMR completed - Completed reason: Previously Given Results Test Name Date and Time Measure Units Reference Range Abnormal Flag Comments Unknown Vital Signs Date / Time: Height Weight Pulse Rate Blood Pressure Temperature /13:49:00 66.00 in 223.00 lbs 85 /min 139/86 mm[Hg] 98.9 F Procedures Procedure Date Unknown Encounters Encounter Location Date Patient Visit [facility] Mur Day Surg Patient Visit [facility] Pulmonology Patient Visit [facility] Mur Gastro Patient Visit [facility] Mur Gastro Patient Visit [facility] Endo Patient Visit [facility] Endo Patient Visit [facility] Patient [facility] Pulmonology Patient Visit [facility] Pulmonology Advance Directives Directive Effective Date Unknown
[2016-09-07 07:41] LABS: BASOPHILS # (AUTO) 0.1 T/MM3 (0-0.2); BASOPHILS % (AUTO) 0.7 % (0-2); EOSINOPHILS # (AUTO) 0.1 T/MM3 (0-0.5); EOSINOPHILS % (AUTO) 1.3 % (0-4); HCT - HEMATOCRIT 44.2 % (41-53); IMMATURE GRANULOCYTE # (AUTO) 0.01 T/MM3 (0.00-0.03); IMMATURE GRANULOCYTE % (AUTO) 0.1 % (0.0-0.5); LYMPHOCYTES # (AUTO) 3.5 T/MM3 (1-4.8); LYMPHOCYTES % (AUTO) 36.8 % (23-45); MEAN CORPUSCULAR HGB 29.6 UUG (26-34); MEAN CORPUSCULAR HGB CONC(MCHC 33.9 GM/DL (31-37); MEAN CORPUSCULAR VOLUME 87.4 UM3 (80-100); MEAN PLATELET VOLUME 10.9 UM3 (9.4-12.4); MONOCYTES # (AUTO) 0.5 T/MM3 (0-0.8); MONOCYTES % (AUTO) 5.3 % (0-9.0); NEUTROPHILS #(AUTO)-ABSOLUTE 5.3 T/MM3 (1.8-7.7); NEUTROPHILS % (AUTO) 55.8 % (33-66); RED BLOOD COUNT 5.06 M/MM3 (4.50-5.90); WBC - WHITE BLOOD COUNT 9.5 T/MM3 (4.5-11.0)
[2016-09-07] MEDS ORDERED: LIDOCAINE 1%/EPI 1:100,000 20ml MDV ONE (08:13)
[2016-09-07] MEDS ORDERED: SALINE FLUSH 10ml SYRINGE ONE ×3 (08:13→10:36)
--- NOTE | 2016-09-07 09:05 | ANESPREOP ---
Anesthesia Record Date and Time DATE: 09/07/16 TIME: 09:00 Proposed Surgical Procedure elier. subcutaneous mastectomy Allergies: Coded Allergies: Chocolate (Verified Allergy, Unknown, 09/07/16) Legumes (Verified Allergy, Unknown, 09/07/16) Sulfa (Sulfonamide Antibiotics) (Verified Allergy, Unknown, 09/07/16) aspirin (Verified Allergy, Unknown, 09/07/16) lactose (Verified Allergy, Unknown, 09/07/16) latex (Verified Allergy, Unknown, 09/07/16) nut - unspecified (Verified Allergy, Unknown, 09/07/16) Ht/Wt/BMI Height: 5 ' 6.00 " Weight: 95.600 kg BMI: 34.0 kg/m2 Vital Signs Date Time Temp Pulse Resp B/P Pulse Ox O2 Delivery O2 Flow Rate FiO2 09/07/16 07:25 98.9 91 15 134/84 96 Room Air Medications Inpatient Medications Current Medications Medications (Trade) Dose Ordered Sig/Alondra Start Time Stop Time Status Last Admin Dose Admin Lactated Ringer's (Lactated Ringers) 1,000 ml @ 50 mls/hr Q20H 09/07/16 07:00 09/07/16 07:59 50 MLS/HR Albuterol Sulfate (Proair HFA 90 mcg/actuation) 8.5 Gm Hfa.aer.ad, 2 PUFF INH Q6H PRN for SHORTNESS OF AIR/WHEEZING, (Reported) Last Taken: on 08/08/16 Cholecalciferol (Vitamin D3) (Vitamin D) 1,000 Unit Capsule, 1 TAB PO DAILY, (Reported) Last Taken: on 09/04/16 Hyoscyamine Sulfate (Hyoscyamine Sulfate) 0.375 Mg Tab.er.12h, 1 TAB PO BID, (Reported) Last Taken: on 09/06/161999 Lisinopril (Lisinopril) 10 Mg Tablet, 1 TAB PO DAILY, (Reported) Last Taken: on 09/05/161999 Loratadine (Loratadine) 10 Mg Tablet, 10 MG PO ACB, (Reported) Take 1 tablet, by mouth, one time a day (before breakfast). Last Taken: on 09/06/161999 Multivitamin with Minerals (Men's One Daily) 1 Each Tablet, 1 TAB PO DAILY, (Reported) Last Taken: on 09/06/16 0800 Pantoprazole Sodium (Pantoprazole Sodium) 40 Mg Tablet.dr, 40 MG PO ACB, (Reported) Take 1 tablet, by mouth, daily before breakfast. Last Taken: on 09/06/16 0800 Testosterone Cypionate (Testosterone Cypionate ) 200 Mg/1 Ml Vial, 1 DOSE IM 1 WEEK, (Reported) Last Taken: on 08/25/16 Venlafaxine HCl (Venlafaxine HCl) 75 Mg Tablet, 75 MG PO DAILY, (Reported) Last Taken: on 09/06/16 0800 Discontinued Medications Venlafaxine HCl (Venlafaxine HCl) 100 Mg Tablet, 1 TAB PO DAILY, (Reported) Currently on Beta Gabriel: No Medical/Surgical History Anesthesia PMH: Reports: *Hypertension, Anesthesia Reactions (N&V; no known airway issues), Asthma (uses inhaler prn), Pneumonia (hx of), Reflux, Sleep Apnea (Does not use his CPAP), Denies: *Diabetes, Arthritis, Blood Transfusion Reac, Cancer, Clotting Problems, Glaucoma, Malignant Hyperthermia, Renal Disease , Thyroid Disease Smoking Status: Never smoker Has pt. smoked today?: No Substance Use Type: does not use Past Surgical History Orthopedic Surgeries: Abdominal Surgeries: Genitourinary Surgeries: Cardiac Surgeries: Endocrine Surgeries: Reproductive Surgeries: Yes - HYST. Neurological Surgeries: Ear Surgeries: Nose Surgeries: Throat Surgeries: Other Surgeries: Yes - wisdom teeth; colonscopy & EGD Anesthesia Adverse Reactions: FOUND nausea and vomiting Family Hx of Anesthesia Advers: none Hx of Motion Sickness: No Pertinent Findings Laboratory Tests 09/07/16 07:33 Physical Exam Respiratory: Lungs clear Cardiovascular: FOUND Regular rate, rhythm Airway Assessment Mallampati Score: II TMD: 3 Fingerbreadths Neck Extension: Good Overall Assessment: No Airway Concerns ASA: 2 Plan Anesthesia Plan: GETA Discussion Discussed risks/options/alternatives of anesthesia and questions answered. Patient consents. Nursing pain assessment noted. Present: Friend Attestation Statement Prior to the delivery of any anesthetic medication, I examined the patient, developed the plan, obtained the patient's consent and discussed the risk and benefits of the procedure with the patient/guardian. TAYE TANNER CRNA September 07, 2016 09:05
[2016-09-07] MEDS ORDERED: LIDOCAINE 2% (20mg/ml) 5ml PF SDV ONE (09:08)
[2016-09-07] MEDS ORDERED: PROPOFOL 200mg 20 ML IV ONE (09:08)
[2016-09-07] MEDS ORDERED: MIDAZOLAM 2mg/2ml INJECTION ONE (09:09)
[2016-09-07] MEDS ORDERED: FENTANYL 100mcg/2ml INJECTION ONE (09:09)
[2016-09-07] MEDS ORDERED: SCOPOLAMINE 1.5 MG PATCH TD ONE (09:15)
[2016-09-07] MEDS ORDERED: HYDROMORPHONE 2mg/ml INJECTION ONE (09:35)
[2016-09-07] MEDS ORDERED: CEFAZOLIN 1 G in NORMAL SALINE 100 ML IV ONE (09:45)
[2016-09-07] MEDS ORDERED: SEVOFLURANE 250 ML LIQUID IH ONE (10:28)
[2016-09-07] MEDS ORDERED: PHENYLEPHRINE 10mg/ml INJECTION ONE (10:36)
[2016-09-07] MEDS ORDERED: EPHEDRINE SULFATE 50mg/ml INJECTION ONE (10:36)
[2016-09-07] MEDS ORDERED: ATROPINE 1mg/10ml Syringe IV PRN (12:00)
[2016-09-07] MEDS ORDERED: ONDANSETRON 4mg/2ml INJECTION IV PRN ×2 (12:00)
[2016-09-07] MEDS ORDERED: DiphenhydrAMINE 50 MG/ML INJECTION IV ONE ×2 (12:00→12:45)
[2016-09-07] MEDS ORDERED: OXYCODONE/APAP 5mg/325mg TABLET PO PRN (12:00)
[2016-09-07] MEDS ORDERED: CEPH-583 PO (12:03)
[2016-09-07] MEDS ORDERED: ONDA4TAB4 PO (12:03)
[2016-09-07] MEDS ORDERED: OXYC1TAB8 PO (12:03)
[2016-09-07] MEDS: HYDROMORPHONE 2mg/ml INJECTION IV PRN ×2 (12:23→12:33)
--- NOTE | 2016-09-07 14:00 | NUR ---
REPORT REPORT RECEIVED FROM MARCY HUNTER. PATIENT VSS, PAIN 6/10 - ORAL AND IV PAIN MEDICATIONS GIVEN. AT BEDSIDE. RN STATES DOCTOR NEEDS TO LOOK AT [place] DRAIN FROM LEFT SIDE IT IS NOT DRAINING APPROPRIATELY - UPON GETTING PATIENT UP TO RESTROOM, BLOOD NOTED ON SKIN AND WETNESS NOTED TO COMPRESSION GARMENT. DR. YATES NOTIFIED PATIENT NEEDS TO BE SEEN AT THIS TIME WHEN HER CURRENT CASE IS COMPLETE.
--- NOTE | 2016-09-07 14:24 | NUR ---
DR. MILAN YATES INTO PATIENT'S ROOM TO ASSESS SITE.
[2016-09-07] MEDS ORDERED: DEXAMETHASONE 4mg/ml - 1ml INJECTION ONE (14:34)
--- NOTE | 2016-09-07 14:49 | PDPROCED ---
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
--- NOTE | 2016-09-07 15:30 | ANESPO ---
Post-Op Note Date 09/07/16 Time: 12:40 Status Pt Participated in Evaluation: Pt participated in person Vital Signs Date Time Temp Pulse Resp B/P Pulse Ox O2 Delivery O2 Flow Rate FiO2 09/07/16 14:30 93 15 140/86 98 Room Air 09/07/16 12:45 98.3 09/07/16 12:20 1.00 Respiratory Function: Airway patent Cardiovascular Function: Regular pulse Mental Status: Alert/oriented Pain Level Intensity: 4 Unable to Assess Pain Due To: Pt Sleeping Hydration: IV infusing, Nausea (slight nausea) Complications during Recovery None apparent Follow-Up Instructions Instructions Per Surgeon TAYE TANNER CRNA September 07, 2016 15:30
--- NOTE | 2016-09-07 19:39 | OPNOTEF ---
DATE OF OPERATION September 07, 2016 PREOPERATIVE DIAGNOSES 1. 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 2. Folliculitis of chest wall. POSTOPERATIVE DIAGNSES 1. 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 2. Folliculitis of chest wall. OPERATION Double incision subcutaneous mastectomy with free nipple graft for female-to- male mammoplasty. ANESTHESIA General. INDICATIONS The patient is a 30-year-old G0, P0 transgender male presenting requesting breast removal as part of his [id number]-[id number] transition. He presented with his . He has been actively taking testosterone for two years and is under the care of a physician and a therapist during this transition. He has no personal history of breast cancer or smoking. He does have a paternal aunt with a history of breast cancer in her 70s. Of note, the patient is attending [employer] and has lost 20 pounds since his initial visit. On exam, he had firm, nodular breasts with excess adiposity extending to the bilateral lateral breasts - the left breast was slightly larger than the right. There were no discrete masses noted on exam. He had grade 3 ptosis bilaterally. The chest wall had folliculitis in the inframammary fold and the mid sternum initially had fungal changes. He was placed on Lotrisone cream to the inframammary folds and sternum b.i.d. preoperatively and began Keflex 500 mg p.o. t.i.d. two days prior to surgery. In detailed discussion with the patient preoperatively, the risks, benefits, and alternatives of the FTM mammoplasty were reviewed including, although not limited to, bleeding, infection, poor or keloid scarring, delayed wound-healing, possible partial or complete loss of the skin flaps and/or nipple-areolar complex, altered or absent nipple sensation, residual asymmetry , possible regrowth. We also specifically discussed possible changes in nipple pigmentation and techniques for re-creating a nipple post procedure if necessary. The patient and his understood and wished to proceed. DESCRIPTION OF OPERATION The patient was marked preoperatively and then brought to the operating room where, after suitable general anesthesia had been obtained, the breasts were prepped and draped in the usual sterile manner. Of note, he received 1 gm of Ancef preoperatively and wore sequential stockings throughout. First, the breasts were infiltrated with 20 mL each of 0.5% lidocaine with 1:200,000 epinephrine. Next, the right inframammary fold incision was made sharply and carried down through subcutaneous tissues using electrocautery. Hemostasis throughout was obtained using electrocautery. The breast tissue was then elevated at the level of the pectoralis fascia. The excess was then marked, excised and handed off as a specimen. Prior to complete removal, the nipple-areolar complex, which had been previously marked, was removed and placed on the back table pending reattachment. The skin flaps were then elevated and excess tissue was then removed and also handed off. The wound was copiously irrigated and meticulous hemostasis obtained using electrocautery. The wound was temporarily closed over a #10 Jamar-Molina drain that was brought out laterally. The patient was then placed in the upright position and the nipple-areolar complex location was determined at this point. He was returned to the supine position and attention was turned to the left breast where identical dissection, resection and temporary closure were performed. He was again place into the upright position to check symmetry as well as positioning of the left nipple-areolar complex. When this had been obtained and confirmed, he was returned to the supine position and closure proceeded as follows: The wounds were closed in two layers using running 3-0 polyglyconate V-Loc suture and then a running subcuticular suture of 4-0 Monocryl. Interrupted 6-0 nylon was used as needed for improved closure. The nipple-areolar complexes were placed as a free nipple graft and then inset using interrupted 6-0 nylon. A bolster dressing of mineral oil-soaked cotton and Xeroform was then sutured to the graft using interrupted 5-0 nylon. Benzoin and Steri-Strips were applied as well as a dry sterile dressing, Epifoam and a compression garment. The patient was then extubated and brought to the recovery room in stable condition. Estimated blood loss was per Anesthesia. The case was clean. Specimens were the right and left breast portions of. Medical clearance was from Isidro Case MD and REBEKAH Kingston. DERIK
[2016-09-10] MEDS ORDERED: SCOPOLAMINE PATCH REMOVAL TD ONE (09:15)
== END 2016-09-07 14:46 | disposition home or self-care (01) ==
LOC: SCU 07:10 → SRG 07:11 → SCU 14:46
PROVIDERS: ATTEND Surgery Plastic and Reconstructive Surgery
DX: F64.0 Transsexualism (principal); N64.81 Ptosis of breast; L73.9 Follicular disorder, unspecified
CPT/HCPCS: 19303; 36415; 85025; A6222; A6223; J0330; J0690; J1100; J1170; J1200; J2250; J2370; J2405; J2704; J3010; J7050; J7120